=== PATIENT | male | born 1940 | race Caucasian/White ===

== ENCOUNTER 2022-10-12 12:18 | Inpatient (IN) | payer MEDICARE, OTHER ==
[2022-10-12] VITALS: BP 130/67
[~2022-10-12] VITALS: Ht 172.7 cm; Wt 78.0 kg
[~2022-10-12 12:18] MED LIST: ASPI-605 PO; ENAL10TA75 PO; LATA2.5D2 EACHEYE; LEVO100T PO; LISI10TA30 PO; OMEP20CA4 PO; PRAV20TA4 PO; SIMV20TA2 PO; SITA25TA; TIMO1DRO2 EACHEYE; [UNRECOGNIZED DRUG - REMARK]
--- NOTE | 2022-10-12 12:34 | NUR ---
DR. AMADO SPEAKING WITH DR. PECK.
[2022-10-12] MEDS ORDERED: FOLI0.4T6 PO (12:59)
[2022-10-12] MEDS ORDERED: CALC1TAB30 PO (12:59)
[2022-10-12] MEDS ORDERED: FAMO20TA8 PO (12:59)
[2022-10-12] MEDS ORDERED: HYDR-4303 PO (12:59)
[2022-10-12] MEDS ORDERED: CARV6.252 PO (12:59)
[2022-10-12] MEDS ORDERED: ALPR0.5T8 PO (12:59)
[2022-10-12] MEDS ORDERED: MULT-1201 PO (13:00)
--- NOTE | 2022-10-12 13:10 | NUR ---
linsey established. 20g R FA
[2022-10-12 13:39] LABS: BASOPHILS % (AUTO) 0.2 % (0.0-2.0); EOSINOPHILS % (AUTO) 0.1 % (0.0-6.0); HEMATOCRIT 34 % (39-51); HEMOGLOBIN 11.1 g/dL (13.5-17.5); LYMPHOCYTES # (AUTO) 0.3 K/uL (0.8-4.8); LYMPHOCYTES % (AUTO) 1.4 % (20.0-44.0); MEAN CORPUSCULAR HGB CONC 32 g/dl (31.0-36.0); MEAN CORPUSCULAR VOLUME 87 fL (80-96); MONOCYTES # (AUTO) 0.2 K/uL (0.1-1.30); MONOCYTES % (AUTO) 0.9 % (2.0-12.0); NEUTROPHILS # (AUTO) 21.3 K/uL (1.8-8.9); NEUTROPHILS % (AUTO) 97.4 % (43.0-81.0); PLATELET COUNT (AUTO) 187 K/uL (150-450); RED BLOOD CELL COUNT(AUTO) 3.94 MIL/uL (4.5-6.0); WHITE BLOOD COUNT (AUTO) 21.9 K/uL (4.3-11.0)
[2022-10-12 13:55] LABS: CALCIUM, SERUM 9.2 mg/dL (8.5-10.1); CARBON DIOXIDE 25 mmol/L (21-32); CHLORIDE 94 mmol/L (98-107); CREATININE 1.2 mg/dL (0.6-1.3); GLUCOSE 72 mg/dL (74-106); SODIUM SERUM 130 mmol/L (136-145); UREA NITROGEN, BLOOD 51 mg/dL (7-18)
[2022-10-12 14:00] LABS: ALANINE AMINOTRANSFERASE 15 U/L (12-78); ALKALINE PHOSPHATASE 134 U/L (46-116); ASPARTATE AMINOTRANSFERASE 40 U/L (15-37); BILIRUBIN,DIRECT 0.3 mg/dL (0.0-0.2); BILIRUBIN,TOTAL 0.6 mg/dL (0.2-1.0); TOTAL PROTEIN, SERUM 5.5 g/dL (6.4-8.2)
[2022-10-12 14:05] LABS: ALBUMIN 1.3 g/dL (3.4-5.0)
[2022-10-12] MEDS ORDERED: IV NS 0.9% 1,000 ML BAG IV ONE (14:30)
[2022-10-12] MEDS ORDERED: CEFEPIME 1 GM in IV D5W 50 ML IV ONE (14:30)
[2022-10-12] MEDS ORDERED: VANCOMYCIN 1 GM in IV D5W 250 ML IV ONE (14:30)
--- NOTE | 2022-10-12 14:54 | NUR ---
URINE COLLECTED VIA IN &OUT CATH, AND SENT TO LAB.
[2022-10-12] MEDS ORDERED: MAG HYDROX/AL HYDROX/SIMETH 30 ML UDC PO PRN (15:00)
[2022-10-12] MEDS ORDERED: MORPHINE SULFATE INJ 2 MG/ML DISP.SYRIN IV PRN (15:00)
[2022-10-12] MEDS ORDERED: ACETAMINOPHEN 325 MG TABLET PO PRN (15:00)
[2022-10-12] MEDS ORDERED: ONDANSETRON HCL/PF 4 MG/2 ML VIAL IVP PRN (15:00)
[2022-10-12] MEDS ORDERED: MAGNESIUM HYDROXIDE 30 ML UDC PO PRN (15:00)
[2022-10-12] MEDS ORDERED: ALPRAZOLAM 0.5 MG TABLET PO PRN (15:00)
[2022-10-12] MEDS ORDERED: Z GUARD REMEDY 4 OZ OINT TP PRN (15:00)
[2022-10-12] MEDS ORDERED: IOHEXOL-300 100 ML VIAL IV ONE (15:21)
[2022-10-12] MEDS ORDERED: IV NS 0.9% 250 ML IV ONE (15:21)
[2022-10-12 16:08] LABS: BILIRUBIN,URINE 1+ (NEGATIVE); COLOR,URINE YELLOW (YELLOW); LEUKOCYTE ESTERASE ,URINE 3+ (NEGATIVE); NITRITE, URINE NEGATIVE (NEGATIVE); PH,URINE 8.5 (5.0-8.0); PROTEIN,URINE 2+ mg/dl (NEGATIVE); UGLUCOSE NEGATIVE (NEGATIVE)
[2022-10-12 16:54] LABS: BACTERIA,URINE 3+ /HPF (None Seen); SQUAMOUS EPITHELIAL CELL,UR Few /HPF (None Seen); WBC,URINE TOO NUMEROUS TO COUN /HPF (0-3)
--- NOTE | 2022-10-12 17:53 | NUR ---
COVID SWAB COLLECTED AND SENT TO LAB
--- NOTE | 2022-10-12 20:20 | NUR ---
LIZET () [phone]. FOR UPDATES.
--- NOTE | 2022-10-12 21:09 | NUR ---
REPORT GIVEN TO KT AYALA.
--- NOTE | 2022-10-12 21:19 | NUR ---
TRANSFERRED TO 117-1 VIA ACLS PROTOCOL
--- NOTE | 2022-10-12 21:20 | NUR ---
SERVICE TECHNICIAN COPIER NOTES: REPORT RECEIVED FROM STEEL LAYER LAKEISHA. PT TRANSFERRED TO [facility] FROM ER VIA [facility]. PLACED IN ROOM 117 BED 1. PT AWAKE, ALERT/ORIENTED X 1 AND NON-VERBAL ON ROOM AIR AND PT TOLERATED WELL. O2 SAT 97%. IV ACCESS ON RFA#20G INTACT AND PATENT. NO S/S OF INFILTRATIONS. NO FACIAL GRIMACING NOTED. NO ACUTE DISTRESS. ASSESSED WHOLE BODY. NOTED MULTIPLE DTI WITH NECROTIC TISSUE ON LEFT HEEL, SACRUM AREA, RT ISCHIUM AREA AND UPPER BACK AREA. NOTED REDNESS ON LT LATERAL FOOT AND LEFT KNEE. SWELLING NOTED ON TESTICLE AREA AND LEFT ARM NOTED WITH NON-PITTING EDEMA+3. PROVIDED GOOD SKIN CARE. ALL SAFETY MEASURES IN PLACE. SIDE RAILS UP X3, BED IN LOWEST POSITION AND LOCKED. PLACE CALL LIGHT WITH IN REACH. WILL CONTINUE TO MONITOR
[2022-10-12] MEDS: IV NS 0.9% 1,000 ML IV SCH (22:04)
[2022-10-12] MEDS: FAMOTIDINE (20 MG) 20 MG TABLET PO SCH (22:24)
[2022-10-12] MEDS: CARVEDILOL 6.25 MG TABLET PO SCH (22:25)
[2022-10-12] MEDS: ENOXAPARIN SODIUM 40 MG/0.4 ML DISP.SYRIN SQ SCH (22:27)
[2022-10-12] MEDS ORDERED: LATANOPROST EYE DROP 0.005% 2.5 ML BOTTLE ONE (22:41)
[2022-10-12] MEDS: LATANOPROST EYE DROP 0.005% 2.5 ML BOTTLE EACHEYE SCH (22:48)
--- NOTE | 2022-10-12 23:00 | NUR ---
RN NOTES: ATTEMPTED TO CALL [facility] [phone]. BUT NO ANSWER. KEPT RINGING. WILL TRY AGAIN
[2022-10-13] VITALS: BP 102/72
[2022-10-13] MEDS: CEFEPIME 2 GM in IV D5W 100 ML IV SCH ×2 (01:58→13:25)
[2022-10-13 04:00] VITALS: BP 148/65
[2022-10-13] MEDS: IV NS 0.9% 1,000 ML IV SCH ×2 (04:35→20:25)
--- NOTE | 2022-10-13 05:58 | NUR ---
RN NOTES: PT'S CALLED THROUGH [employer] TRUCK DRIVER. UPDATES GIVEN. WILL VISIT PT IN THE MORNING AT 8 AM.
--- NOTE | 2022-10-13 06:40 | NUR ---
RN CLOSING NOTES: PT SLEEPING IN BED BUT EASILY AROUSABLE, AWAKE, ALERT/ORIENTED X 1 AND NON-VERBAL. ON ROOM AIR AND PT TOLERATED WELL. O2 SAT 96%. IV ACCESS ON RFA#20G INTACT AND PATENT. NO S/S OF INFILTRATIONS. RUNNING NS AT 75CC/HR. NO FACIAL GRIMACING NOTED. NO ACUTE DISTRESS. ALL DUE MEDS GIVEN ORDERED. PROVIDED GOOD SKIN CARE. ALL SAFETY MEASURES IN PLACE. SIDE RAILS UP X3, BED IN LOWEST POSITION AND LOCKED. PLACE CALL LIGHT WITH IN REACH. WILL ENDORSE TO MORNING SHIFT NURSE.
--- NOTE | 2022-10-13 07:40 | NUR ---
RN OPENING NOTES PT RECEIVED IN BED RESTING. ALERT/ORIENTED X 1 AND NON-VERBAL. ON ROOM AIR BREATHING EVEN AND UNLABORED WITH NO S/S OF SOB OR RESPIRATORY DISTRESS. IV ACCESS ON RFA#20G INTACT AND PATENT AND NO S/S OF INFILTRATIONS RUNNING NS AT 75CC/HR. ALL SAFETY MEASURES IN PLACE. SIDE RAILS UP X3, BED IN LOWEST POSITION AND LOCKED AND CALL LIGHT WITHIN REACH. WILL CONTINUE TO MONITOR.
[2022-10-13 07:44] LABS: BASOPHILS % (AUTO) 0.2 % (0.0-2.0); HEMATOCRIT 33 % (39-51); HEMOGLOBIN 10.6 g/dL (13.5-17.5); LYMPHOCYTES # (AUTO) 0.4 K/uL (0.8-4.8); LYMPHOCYTES % (AUTO) 1.9 % (20.0-44.0); MEAN CORPUSCULAR HGB CONC 32 g/dl (31.0-36.0); MEAN CORPUSCULAR VOLUME 88 fL (80-96); MONOCYTES # (AUTO) 0.3 K/uL (0.1-1.30); MONOCYTES % (AUTO) 1.7 % (2.0-12.0); NEUTROPHILS # (AUTO) 18.3 K/uL (1.8-8.9); NEUTROPHILS % (AUTO) 96.2 % (43.0-81.0); PLATELET COUNT (AUTO) 158 K/uL (150-450); RED BLOOD CELL COUNT(AUTO) 3.79 MIL/uL (4.5-6.0)
[2022-10-13 08:00] VITALS: BP 140/64
[2022-10-13] MEDS: PANTOPRAZOLE 40 MG/PACK PACK PO SCH (08:32)
[2022-10-13] MEDS: LISINOPRIL (20MG) 20 MG TABLET PO SCH (08:32)
[2022-10-13] MEDS: FAMOTIDINE (20 MG) 20 MG TABLET PO SCH ×2 (08:32→17:48)
[2022-10-13] MEDS: CARVEDILOL 6.25 MG TABLET PO SCH ×2 (08:33→17:48)
--- NOTE | 2022-10-13 08:46 | NUR ---
GOLF CLUB FACER NOTE PATIENT HAS DIFFICULT TO SWALLOW REGULAR DIET ,PER DR LOBO OK TO CHANGE TO PUREE DIET, WILL F\U
[2022-10-13] MEDS ORDERED: TIMOLOL -XE 0.5% 5 ML BOTTLE EACHEYE SCH (09:00)
[2022-10-13] MEDS: LATANOPROST EYE DROP 0.005% 2.5 ML BOTTLE EACHEYE SCH (09:12)
[2022-10-13 09:17] LABS: BILIRUBIN,TOTAL 0.5 mg/dL (0.2-1.0); CALCIUM, SERUM 8.5 mg/dL (8.5-10.1); CREATININE 1.2 mg/dL (0.6-1.3); MAGNESIUM 1.8 mg/dL (1.8-2.4); PHOSPHORUS 2.8 mg/dL (2.5-4.9); POTASSIUM 3.8 mmol/L (3.5-5.1); TOTAL PROTEIN, SERUM 4.7 g/dL (6.4-8.2)
[2022-10-13 09:21] LABS: ALBUMIN 0.9 g/dL (3.4-5.0)
--- NOTE | 2022-10-13 10:58 | NUR ---
EYE DROP TIMOLOL NOT ADMINISTERED. NOT IN [place]. PHARMACY CONTACTED. PATIENT'S WILL BRING MEDICATION IN HERSELF.
--- NOTE | 2022-10-13 11:15 | NUR ---
PHARM ORDERED TIMOLOL. PATIENT'S NOTIFIED. SHE WILL NOT BRING IT IN HERSELF.
--- NOTE | 2022-10-13 11:32 | NUR ---
CRITICAL LAB OF ALBUMIN 0.9. DR JEFFERS NOTIFIED.
--- NOTE | 2022-10-13 11:32 | NUR ---
PATIENT STOOL TAKEN TO TEST FOR C-DIFF.
[2022-10-13 12:00] VITALS: BP 106/52
--- NOTE | 2022-10-13 12:33 | NUR ---
WOUND CARE CONSULT: PT PRESENTS WITH MULTIPLE PRESSURE ULCERS INCLUDING LOWER EXTREMITIES, RT BUTTOCK, SACRUM AND BACK DEEP TISSUE INJURIES, PRESENT ON ADMISSION. DR LOWERY AND DR CHIU CALLED FOR SURGICAL AND DPM CONSULTS. DISCUSSED SKIN PROTECTION WITH NURSING STAFF. PT NOTED TO HAVE SMALL AMOUNT OF LOOSE STOOL. FIRST STEP LOW AIRLOSS MATTRESS IS ON ORDER. MD IN AGREEMENT WITH PLAN OF CARE. Addendum: 10/13/22 at 1234 by JOSE MARIA CONTRERAS WNDNU Amended: Links added.
[2022-10-13] MEDS ORDERED: LIDOCAINE 1% INJ 50 ML MDV IJ ONE (13:00)
--- NOTE | 2022-10-13 13:08 | NUR ---
SW Consult: SW requested consult for multiple pressure sores. Patient brought to the hospital due to failure to thrive and wound complications. Patient appeared to be alert and oriented to self only. Patient appeared to be non-verbal and was unable to answer any questions. Patient's Radha ([phone]) was at bedside and was assisting pt. Patient's nephew was at bedside. Family stated that pt lives at home located at [address] [place] [address]; ([phone]). stated that pt has a caregiver at home 7 days a week. Family expressed that he had back surgery 16 weeks ago and has been bedbound at home. SW offered resources and options such as SNF - family refused and stated that they have full support and would want pt back home when stable. SW will file for APS report due to neglect of care at home (wellness check at home). DC PLAN: Family would want pt to return back home located at [address] [place] [id number]; ([phone]).
--- NOTE | 2022-10-13 13:16 | NUR ---
APS: MONTSE filed for APS through [facility] [employer] #[id number] for wellness check at home.
[2022-10-13] MEDS: PROSOURCE / PROSTAT (PYXIS) 30 ML UDC GT SCH ×2 (13:27→18:05)
--- NOTE | 2022-10-13 13:29 | NUR ---
CONTACTED KITCHEN REGARDING GLUCERNA SHAKE PATIENT RECEIVED ENSURE BUT NOT GLUCERNA. KITCHEN SAID THEY DID NOT SEE ORDER FOR GLUCERNA EARLIER. WILL SEND UP LORELEI.
--- NOTE | 2022-10-13 13:45 | NUR ---
FOLLOWED UP WITH PHARMACY FOR LIDOCAINE. PATIENT EXPECTED TO HAVE WOUND DEBRIDEMENT SHORTLY.
[2022-10-13] MEDS: GLUCERNA SHAKE 237 ML CAN PO SCH ×2 (13:51→18:05)
[2022-10-13] MEDS: VANCOMYCIN 1.25 GM in IV D5W 250 ML IV SCH (15:23)
[2022-10-13 16:00] VITALS: BP 118/95
[2022-10-13] MEDS: ATORVASTATIN 10 MG TABLET PO SCH (17:47)
[2022-10-13] MEDS: TIMOLOL 0.5% SOLN OPHTH 5 ML BOTTLE EACHEYE SCH (18:05)
[2022-10-13 20:00] VITALS: BP 88/55
--- NOTE | 2022-10-13 20:03 | NUR ---
GRIT REMOVAL OPERATOR OPENING NOTES PT IN BED SLEEPING. PATIENT IS DEAF BUT ALERT. ON ROOM AIR BREATHING EVEN AND UNLABORED WITH NO S/S OF SOB OR RESPIRATORY DISTRESS. ON TELE MONITOR. IV ACCESS ON RFA#20G INTACT AND PATENT AND NO S/S OF INFILTRATIONS RUNNING NS AT 75CC/HR. ALL DUE MEDS GIVEN AND PATIENT KEPT CLEAN AND COMFORTABLE. ALL SAFETY MEASURES IN PLACE WITH SIDE RAILS UP X3, BED IN LOWEST POSITION AND LOCKED AND CALL LIGHT WITHIN REACH. WILL ENDORSE TO ONCOMING SHIFT FOR DINA. Addendum: 10/13/22 at 2008 by KENDALL MYERS RN CLOSING NOTES, NOT OPENING NOTES
[2022-10-13] MEDS: MEROPENEM 500 MG in IV NS 0.9% 50 ML IV SCH (20:56)
[2022-10-13] MEDS: ENOXAPARIN SODIUM 40 MG/0.4 ML DISP.SYRIN SQ SCH (21:00)
[2022-10-13] MEDS: DAKINS QUARTER STRENGTH (0.125%) 480 ML BOTTLE TOP SCH (23:00)
[2022-10-14] VITALS (22 sets, daily range): BP systolic 73–127; BP diastolic 40–75
[2022-10-14] MEDS: MEROPENEM 500 MG in IV NS 0.9% 50 ML IV SCH ×3 (05:12→21:07)
[2022-10-14] MEDS: IV NS 0.9% 1,000 ML IV SCH (06:33)
--- NOTE | 2022-10-14 06:39 | NUR ---
FIRE FIGHTING EQUIPMENT SPECIALIST CLOSING NOTES PT IN BED SLEEPING. PATIENT IS DEAF BUT ALERT. ON ROOM AIR BREATHING EVEN AND UNLABORED WITH NO S/S OF SOB OR RESPIRATORY DISTRESS. ON TELE MONITOR. IV ACCESS ON RFA#20G INTACT AND PATENT AND NO S/S OF INFILTRATIONS RUNNING NS AT 75CC/HR. PATIENT KEPT CLEAN AND COMFORTABLE. ALL SAFETY MEASURES IN PLACE WITH SIDE RAILS UP X3, BED IN LOWEST POSITION AND LOCKED AND CALL LIGHT WITHIN REACH.
[2022-10-14 06:46] LABS: CALCIUM, SERUM 8.6 mg/dL (8.5-10.1); CARBON DIOXIDE 21 mmol/L (21-32); CHLORIDE 100 mmol/L (98-107); CREATININE 1.3 mg/dL (0.6-1.3); GLUCOSE 186 mg/dL (74-106); POTASSIUM 3.7 mmol/L (3.5-5.1); SODIUM SERUM 130 mmol/L (136-145); UREA NITROGEN, BLOOD 53 mg/dL (7-18)
[2022-10-14] MEDS ORDERED: LIDOCAINE 1%-EPI 1:100,000 50 ML VIAL IJ ONE (07:00)
--- NOTE | 2022-10-14 07:10 | NUR ---
RN OPENING NOTE PT IN BED SLEEPING. PATIENT IS DEAF BUT ALERT. ON ROOM AIR BREATHING EVEN AND UNLABORED WITH NO S/S OF SOB OR RESPIRATORY DISTRESS. ON TELE MONITOR. IV ACCESS ON RFA#20G INTACT AND PATENT AND NO S/S OF INFILTRATIONS RUNNING NS AT 75CC/HR. ALL SAFETY MEASURES IN PLACE WITH SIDE RAILS UP X3, BED IN LOWEST POSITION AND LOCKED AND CALL LIGHT WITHIN REACH. WILL CONTINUE TO MONITOR.
[2022-10-14] MEDS: PANTOPRAZOLE 40 MG/PACK PACK PO SCH (07:46)
[2022-10-14] MEDS ORDERED: SILVER NITRATE APPLICATOR 1 EA BOX TP SCH (08:00)
[2022-10-14] MEDS: GLUCERNA SHAKE 237 ML CAN PO SCH ×2 (08:02→18:03)
[2022-10-14] MEDS: PROSOURCE / PROSTAT (PYXIS) 30 ML UDC GT SCH ×3 (08:46→17:00)
[2022-10-14] MEDS: LISINOPRIL (20MG) 20 MG TABLET PO SCH (09:00)
[2022-10-14] MEDS ORDERED: ENSURE ENLIVE 237 ML LIQUID (VANILLA) PO SCH (09:00)
[2022-10-14] MEDS: TIMOLOL 0.5% SOLN OPHTH 5 ML BOTTLE EACHEYE SCH ×2 (09:12→18:03)
[2022-10-14] MEDS: FAMOTIDINE (20 MG) 20 MG TABLET PO SCH ×2 (09:15→18:02)
[2022-10-14] MEDS: CARVEDILOL 6.25 MG TABLET PO SCH ×2 (09:15→17:00)
[2022-10-14] MEDS: DAKINS HALF STRENGTH (0.25%) 480 ML BOTTLE TOP SCH (09:15)
[2022-10-14] MEDS: DAKINS QUARTER STRENGTH (0.125%) 480 ML BOTTLE TOP SCH (09:15)
[2022-10-14] MEDS: MIDODRINE HCL (5MG) 5 MG TABLET PO SCH ×3 (11:17→18:02)
[2022-10-14 11:32] LABS: BILIRUBIN,DIRECT 0.2 mg/dL (0.0-0.2); BILIRUBIN,TOTAL 0.5 mg/dL (0.2-1.0); TOTAL PROTEIN, SERUM 4.6 g/dL (6.4-8.2)
[2022-10-14 12:12] LABS: BASOPHILS % (AUTO) 0.1 % (0.0-2.0); HEMATOCRIT 28 % (39-51); HEMOGLOBIN 9.1 g/dL (13.5-17.5); LYMPHOCYTES # (AUTO) 0.3 K/uL (0.8-4.8); LYMPHOCYTES % (AUTO) 1.4 % (20.0-44.0); MEAN CORPUSCULAR HGB CONC 32 g/dl (31.0-36.0); MEAN CORPUSCULAR VOLUME 86 fL (80-96); MONOCYTES # (AUTO) 0.4 K/uL (0.1-1.30); NEUTROPHILS # (AUTO) 17.9 K/uL (1.8-8.9); NEUTROPHILS % (AUTO) 96.5 % (43.0-81.0); PLATELET COUNT (AUTO) 155 K/uL (150-450); RED BLOOD CELL COUNT(AUTO) 3.28 MIL/uL (4.5-6.0); WHITE BLOOD COUNT (AUTO) 18.5 K/uL (4.3-11.0)
[2022-10-14] MEDS ORDERED: NOREPINEPHRINE 8 MG in IV NS 0.9% 242 ML IV PRN (13:00)
--- NOTE | 2022-10-14 13:20 | NUR ---
PT ARRIVED IN ICU VIA BED. PT LETHARGIC BUT AROUSES WITHOUT DIFFICULTY. PT ORIENTED TO SELF. BP IS LOW, BOLUS GIVEN IN [facility] PER REPORT. LEVOPHED WILL BE STARTED IF PT'S BLOOD PRESSURE STAYS BELOW A MAP OF 65 OR SYSTOLIC OF 90, WILL CONTINUE TO MONITOR. AT THIS TIME BP IS BORDERLINE. REQUESTED FOR MIDLINE FOR PATIENT SINCE PATIENT ONLY HAS 1 IV SITE. PT CHECKED ON HOURLY AND PRN BY NURSING STAFF.
[2022-10-14] MEDS: IV NS 0.9% 1,000 ML IV PRN (13:30)
--- NOTE | 2022-10-14 13:30 | NUR ---
PATIENT TRANSFERRED TO ICU, BEDSIDE REPORT GIVEN TO MARVA MERAZ IN ICU. ALL BELONGINGS AND MEDICATIONS SENT WITH PATIENT. FAMILY NOTIFIED ABOUT TRANSFER.
[2022-10-14] MEDS: VANCOMYCIN 1.25 GM in IV D5W 250 ML IV SCH (14:38)
[2022-10-14 14:46] LABS: D-DIMER 2.81 mg/L(FEU (0.17-0.50)
[2022-10-14] MEDS: ATORVASTATIN 10 MG TABLET PO SCH (18:02)
[2022-10-14] MEDS: ENOXAPARIN SODIUM 40 MG/0.4 ML DISP.SYRIN SQ SCH (21:07)
[2022-10-14] MEDS: LATANOPROST EYE DROP 0.005% 2.5 ML BOTTLE EACHEYE SCH (21:09)
--- NOTE | 2022-10-14 22:00 | NUR ---
ICU/RN: TASHA WATTERS ACNP AT BEDSIDE PLACE MIDLINE. RIGHT UPPER ARM MIDLINE PLACED. PT TOLERATED WELL.
[2022-10-15] VITALS (26 sets, daily range): BP systolic 87–137; BP diastolic 43–114
[2022-10-15 05:10] LABS: BASOPHILS % (AUTO) 0.1 % (0.0-2.0); EOSINOPHILS % (AUTO) 0.1 % (0.0-6.0); HEMATOCRIT 28 % (39-51); HEMOGLOBIN 9.2 g/dL (13.5-17.5); LYMPHOCYTES # (AUTO) 0.3 K/uL (0.8-4.8); LYMPHOCYTES % (AUTO) 1.7 % (20.0-44.0); MEAN CORPUSCULAR HGB CONC 33 g/dl (31.0-36.0); MEAN CORPUSCULAR VOLUME 85 fL (80-96); MONOCYTES # (AUTO) 0.4 K/uL (0.1-1.30); MONOCYTES % (AUTO) 1.8 % (2.0-12.0); NEUTROPHILS # (AUTO) 19.6 K/uL (1.8-8.9); NEUTROPHILS % (AUTO) 96.3 % (43.0-81.0); PLATELET COUNT (AUTO) 180 K/uL (150-450); RED BLOOD CELL COUNT(AUTO) 3.34 MIL/uL (4.5-6.0); WHITE BLOOD COUNT (AUTO) 20.4 K/uL (4.3-11.0)
[2022-10-15 05:15] LABS: ALANINE AMINOTRANSFERASE 20 U/L (12-78); ALKALINE PHOSPHATASE 95 U/L (46-116); ASPARTATE AMINOTRANSFERASE 37 U/L (15-37); BILIRUBIN,TOTAL 0.4 mg/dL (0.2-1.0); CALCIUM, SERUM 8.5 mg/dL (8.5-10.1); CARBON DIOXIDE 22 mmol/L (21-32); CHLORIDE 103 mmol/L (98-107); CREATININE 1.2 mg/dL (0.6-1.3); GLUCOSE 159 mg/dL (74-106); POTASSIUM 3.6 mmol/L (3.5-5.1); SODIUM SERUM 135 mmol/L (136-145); TOTAL PROTEIN, SERUM 4.3 g/dL (6.4-8.2); UREA NITROGEN, BLOOD 54 mg/dL (7-18)
[2022-10-15] MEDS: MEROPENEM 500 MG in IV NS 0.9% 50 ML IV SCH ×3 (05:15→20:30)
[2022-10-15] MEDS: PANTOPRAZOLE 40 MG/PACK PACK PO SCH (08:27)
[2022-10-15] MEDS: MIDODRINE HCL (5MG) 5 MG TABLET PO SCH ×3 (08:28→17:17)
[2022-10-15] MEDS: FAMOTIDINE (20 MG) 20 MG TABLET PO SCH ×2 (08:28→17:17)
[2022-10-15] MEDS: TIMOLOL 0.5% SOLN OPHTH 5 ML BOTTLE EACHEYE SCH ×2 (08:30→17:14)
[2022-10-15] MEDS: GLUCERNA SHAKE 237 ML CAN PO SCH ×2 (08:30→17:00)
[2022-10-15] MEDS: CARVEDILOL 6.25 MG TABLET PO SCH ×2 (08:30→17:00)
[2022-10-15] MEDS: LISINOPRIL (20MG) 20 MG TABLET PO SCH (08:31)
[2022-10-15] MEDS: PROSOURCE / PROSTAT (PYXIS) 30 ML UDC GT SCH ×3 (08:33→17:00)
[2022-10-15] MEDS: DAKINS HALF STRENGTH (0.25%) 480 ML BOTTLE TOP SCH (08:37)
[2022-10-15] MEDS: DAKINS QUARTER STRENGTH (0.125%) 480 ML BOTTLE TOP SCH (08:37)
[2022-10-15] MEDS: IV NS 0.9% 1,000 ML IV PRN (10:26)
[2022-10-15 13:17] LABS: BAND % (MANUAL) 6 % (0.0-5.0); BASOPHILS % (MANUAL) 0 % (0.0-2.0); EOSINOPHILS % (MANUAL) 0 % (0-4); LYMPHOCYTES % (MANUAL) 6 % (16-48); MONOCYTES % (MANUAL) 4 % (0-11.0); NEUTROPHILS % (MANUAL) 84 (42-76)
[2022-10-15] MEDS: VANCOMYCIN 1.25 GM in IV D5W 250 ML IV SCH (13:53)
[2022-10-15] MEDS: ATORVASTATIN 10 MG TABLET PO SCH (17:18)
--- NOTE | 2022-10-15 19:10 | NUR ---
RN CLOSING NOTE PT ASLEEP, O2 2L VIA NC, SAT 99%, IV ACCESS RIGHT UA, INTACT, PATENT. PT NPO EXCEPT MEDS UNTIL CT NECK. ENDORSE TO THE UPCOMING SHIFT NURSE FOR DINA.
[2022-10-15] MEDS: ENOXAPARIN SODIUM 40 MG/0.4 ML DISP.SYRIN SQ SCH (20:29)
[2022-10-15] MEDS: LATANOPROST EYE DROP 0.005% 2.5 ML BOTTLE EACHEYE SCH (22:17)
[2022-10-16] VITALS (18 sets, daily range): BP systolic 102–158; BP diastolic 52–112
[2022-10-16] MEDS: IV NS 0.9% 1,000 ML IV PRN ×2 (01:12→18:05)
[2022-10-16 04:33] LABS: BASOPHILS # (AUTO) 0.1 K/uL (0.0-0.2); BASOPHILS % (AUTO) 0.3 % (0.0-2.0); HEMATOCRIT 28 % (39-51); LYMPHOCYTES # (AUTO) 0.4 K/uL (0.8-4.8); LYMPHOCYTES % (AUTO) 1.7 % (20.0-44.0); MEAN CORPUSCULAR HGB CONC 33 g/dl (31.0-36.0); MEAN CORPUSCULAR VOLUME 85 fL (80-96); MONOCYTES # (AUTO) 0.4 K/uL (0.1-1.30); MONOCYTES % (AUTO) 1.9 % (2.0-12.0); NEUTROPHILS # (AUTO) 22.3 K/uL (1.8-8.9); NEUTROPHILS % (AUTO) 95.1 % (43.0-81.0); PLATELET COUNT (AUTO) 209 K/uL (150-450); RED BLOOD CELL COUNT(AUTO) 3.24 MIL/uL (4.5-6.0); WHITE BLOOD COUNT (AUTO) 23.4 K/uL (4.3-11.0)
[2022-10-16] MEDS: MEROPENEM 500 MG in IV NS 0.9% 50 ML IV SCH ×3 (05:01→22:06)
[2022-10-16 05:05] LABS: ALANINE AMINOTRANSFERASE 20 U/L (12-78); ALKALINE PHOSPHATASE 98 U/L (46-116); ASPARTATE AMINOTRANSFERASE 28 U/L (15-37); BILIRUBIN,TOTAL 0.4 mg/dL (0.2-1.0); CALCIUM, SERUM 8.4 mg/dL (8.5-10.1); CARBON DIOXIDE 22 mmol/L (21-32); CHLORIDE 106 mmol/L (98-107); CREATININE 1.3 mg/dL (0.6-1.3); GLUCOSE 157 mg/dL (74-106); POTASSIUM 3.7 mmol/L (3.5-5.1); SODIUM SERUM 136 mmol/L (136-145); TOTAL PROTEIN, SERUM 4.3 g/dL (6.4-8.2); UREA NITROGEN, BLOOD 59 mg/dL (7-18)
[2022-10-16 05:58] LABS: BAND % (MANUAL) 1 % (0.0-5.0); LYMPHOCYTES % (MANUAL) 4 % (16-48); MONOCYTES % (MANUAL) 2 % (0-11.0); NEUTROPHILS % (MANUAL) 93 (42-76)
--- NOTE | 2022-10-16 07:14 | NUR ---
RN OPENING NOTE PT IN BED AWAKE. PATIENT IS DEAF ON ROOM AIR BREATHING EVEN AND UNLABORED WITH NO S/S OF SOB OR RESPIRATORY DISTRESS.. IV ACCESS ON LILO MIDLINE . INTACT AND PATENT AND NO S/S OF INFILTRATIONS RUNNING NS AT 75CC/HR. ALL SAFETY MEASURES IN PLACE WITH SIDE RAILS UP X3, BED IN LOWEST POSITION AND LOCKED AND CALL LIGHT WITHIN REACH. WILL CONTINUE TO MONITOR.
[2022-10-16] MEDS: GLUCERNA SHAKE 237 ML CAN PO SCH ×2 (08:00→17:00)
[2022-10-16] MEDS: PANTOPRAZOLE 40 MG/PACK PACK PO SCH (08:06)
[2022-10-16] MEDS: LISINOPRIL (20MG) 20 MG TABLET PO SCH (08:06)
[2022-10-16] MEDS: PROSOURCE / PROSTAT (PYXIS) 30 ML UDC GT SCH ×3 (08:06→17:54)
[2022-10-16] MEDS: CARVEDILOL 6.25 MG TABLET PO SCH ×2 (08:07→17:54)
[2022-10-16] MEDS: FAMOTIDINE (20 MG) 20 MG TABLET PO SCH ×2 (08:07→17:54)
[2022-10-16] MEDS: MIDODRINE HCL (5MG) 5 MG TABLET PO SCH ×3 (08:18→17:56)
[2022-10-16] MEDS: DAKINS QUARTER STRENGTH (0.125%) 480 ML BOTTLE TOP SCH (09:25)
[2022-10-16] MEDS: DAKINS HALF STRENGTH (0.25%) 480 ML BOTTLE TOP SCH (09:25)
[2022-10-16] MEDS: TIMOLOL 0.5% SOLN OPHTH 5 ML BOTTLE EACHEYE SCH ×2 (09:26→17:54)
[2022-10-16] MEDS: ATORVASTATIN 10 MG TABLET PO SCH (17:54)
--- NOTE | 2022-10-16 19:20 | NUR ---
ELEMENTARY SCIENCE TEACHER OPENING NOTE PT IS LYING IN BED WATCHING TV. ACCORDING TO CHANGE SHIFT REPORT, PT IS DEAF. HE IS ON 2 LPM OF OXYGEN VIA NC, TOLERATED WELL. NO S/S OF DISTRESS. PT HAS IV ACCESS AT HIS R UA, ML, #18G, INFUSING NS @75ML / HR. IV SITE IS PATENT AND INTACT. PT IS ON EXTERNAL MONEY MANAGER, ON THE MONITOR, HIS HEART RHYTHM IS V-PACING. PT IS ON NPO EXCEPT FOR MEDICATIONS. PT HAS JUAREZ CATHETER, DRAINING SLIGHTLY CLOUDY LIGHT YELLOW COLOR URINE FREELY. SAFETY MEASURES ARE IN PLACED: BED IN LOWEST AND LOCKED POSITION; SIDE RAILS UP X 2; CALL LIGHT AND TABLE ARE WITHIN REACH. WILL CONTINUE MONITORING THE PT AND PROVIDE THE CARE PT NEEDS.
[2022-10-16] MEDS: ENOXAPARIN SODIUM 40 MG/0.4 ML DISP.SYRIN SQ SCH (22:07)
[2022-10-16] MEDS: LATANOPROST EYE DROP 0.005% 2.5 ML BOTTLE EACHEYE SCH (22:21)
[2022-10-17] VITALS: BP 114/54
[2022-10-17 04:00] VITALS: BP 144/69
[2022-10-17] MEDS: MEROPENEM 500 MG in IV NS 0.9% 50 ML IV SCH ×3 (04:05→20:18)
--- NOTE | 2022-10-17 06:43 | NUR ---
FORGE HAND CLOSING NOTE PT IS SLEEPING IN BED, EASILY BEING AROUSED BY TOUCHING HIS SHOULDER. HE IS ON 2 LPM OF OXYGEN VIA NC, TOLERATED WELL. NO S/S OF DISTRESS. PT HAS IV ACCESS AT HIS R UA, ML, #18G, INFUSING NS @75ML / HR. IV SITE IS PATENT AND INTACT. PT IS ON EXTERNAL EXPANDED DUTY DENTAL ASSISTANT, ON THE MONITOR, HIS HEART RHYTHM IS V-PACING. PT HAS BEEN ON NPO EXCEPT FOR MEDICATIONS DURING THE SHIFT. HE HAS JUAREZ CATHETER, DRAINING SLIGHTLY CLOUDY LIGHT YELLOW COLOR URINE FREELY. URINE OUTPUT DURING THE SHIFT IS 400 ML. BOWEL MOVEMENT X 1: LOOSE STOLLS, LARGE AMOUNT. SAFETY MEASURES ARE IN PLACED: BED IN LOWEST AND LOCKED POSITION; SIDE RAILS UP X 2; CALL LIGHT AND TABLE ARE WITHIN REACH. WILL ENDORSE NEXT SHIFT NURSE FOR CONTINUING PT CARE.
[2022-10-17] MEDS: IV NS 0.9% 1,000 ML IV PRN (06:54)
[2022-10-17 07:22] LABS: BASOPHILS % (AUTO) 0.1 % (0.0-2.0); EOSINOPHILS % (AUTO) 0.1 % (0.0-6.0); HEMATOCRIT 31 % (39-51); HEMOGLOBIN 9.6 g/dL (13.5-17.5); LYMPHOCYTES # (AUTO) 0.3 K/uL (0.8-4.8); LYMPHOCYTES % (AUTO) 1.8 % (20.0-44.0); MEAN CORPUSCULAR HGB CONC 31 g/dl (31.0-36.0); MEAN CORPUSCULAR VOLUME 91 fL (80-96); MONOCYTES # (AUTO) 0.5 K/uL (0.1-1.30); MONOCYTES % (AUTO) 2.9 % (2.0-12.0); NEUTROPHILS # (AUTO) 17.4 K/uL (1.8-8.9); NEUTROPHILS % (AUTO) 95.1 % (43.0-81.0); PLATELET COUNT (AUTO) 154 K/uL (150-450); WHITE BLOOD COUNT (AUTO) 18.3 K/uL (4.3-11.0)
[2022-10-17 07:24] LABS: CALCIUM, SERUM 8.8 mg/dL (8.5-10.1); CARBON DIOXIDE 19 mmol/L (21-32); CHLORIDE 110 mmol/L (98-107); CREATININE 1.2 mg/dL (0.6-1.3); GLUCOSE 134 mg/dL (74-106); POTASSIUM 3.6 mmol/L (3.5-5.1); SODIUM SERUM 139 mmol/L (136-145); UREA NITROGEN, BLOOD 66 mg/dL (7-18)
--- NOTE | 2022-10-17 07:25 | NUR ---
CONTROL AND RECOVERY COMBAT RESCUE OPENING NOTE PT RECEIVED IN BED ASLEEP. ON 2 LPM OF OXYGEN VIA NC, BREATHING EVEN AND UNLABORED, WITH NO S/S OF SOB OR RESPIRATORY DISTRESS. IV ACCESS AT LILO ML, #18G, PATENT AND INTACT, INFUSING NS @75ML / HR. RFA IV 20G SL PRESENT. PT NPO EXCEPT FOR MEDICATIONS. JUAREZ CATHETER PRESENT AND DRAINING SLIGHTLY CLOUDY LIGHT YELLOW COLOR URINE. SAFETY MEASURES IN PLACE WITH BED IN LOWEST AND LOCKED POSITION, SIDE RAILS UP X 2, AND CALL LIGHT AND TABLE WITHIN REACH. WILL CONTINUE TO MONITOR.
[2022-10-17 07:30] LABS: ALANINE AMINOTRANSFERASE 21 U/L (12-78); ALKALINE PHOSPHATASE 107 U/L (46-116); ASPARTATE AMINOTRANSFERASE 35 U/L (15-37); BILIRUBIN,TOTAL 0.6 mg/dL (0.2-1.0); TOTAL PROTEIN, SERUM 4.8 g/dL (6.4-8.2)
[2022-10-17 07:32] LABS: ALBUMIN 1.1 g/dL (3.4-5.0)
[2022-10-17 07:35] LABS: IRON, SERUM 34 ug/dl (50-175); TOTAL IRON BINDING CAPACITY 80 ug/dl (250-450)
[2022-10-17 08:00] VITALS: BP 106/48
[2022-10-17] MEDS: GLUCERNA SHAKE 237 ML CAN PO SCH ×2 (08:00→16:21)
[2022-10-17] MEDS: PANTOPRAZOLE 40 MG/PACK PACK PO SCH (08:26)
[2022-10-17] MEDS: CARVEDILOL 6.25 MG TABLET PO SCH ×2 (08:29→17:00)
[2022-10-17] MEDS: FAMOTIDINE (20 MG) 20 MG TABLET PO SCH ×2 (08:29→16:22)
[2022-10-17] MEDS: MIDODRINE HCL (5MG) 5 MG TABLET PO SCH (08:29)
[2022-10-17] MEDS: DAKINS QUARTER STRENGTH (0.125%) 480 ML BOTTLE TOP SCH (09:00)
[2022-10-17] MEDS: DAKINS HALF STRENGTH (0.25%) 480 ML BOTTLE TOP SCH (09:00)
[2022-10-17] MEDS ORDERED: MIDODRINE HCL (5MG) 5 MG TABLET PO PRN (09:00)
[2022-10-17] MEDS: LISINOPRIL (20MG) 20 MG TABLET PO SCH (09:45)
[2022-10-17 09:50] LABS: BAND % (MANUAL) 4 % (0.0-5.0); LYMPHOCYTES % (MANUAL) 4 % (16-48); METAMYELOCYTES % 1 % (0-0); MONOCYTES % (MANUAL) 2 % (0-11.0); MYELOCYTES % 1 % (0-0); NEUTROPHILS % (MANUAL) 88 (42-76)
[2022-10-17] MEDS: PROSOURCE / PROSTAT (PYXIS) 30 ML UDC GT SCH ×3 (09:58→16:21)
[2022-10-17] MEDS: LATANOPROST EYE DROP 0.005% 2.5 ML BOTTLE EACHEYE SCH (09:59)
[2022-10-17] MEDS: TIMOLOL 0.5% SOLN OPHTH 5 ML BOTTLE EACHEYE SCH ×2 (10:00→18:02)
[2022-10-17 12:00] VITALS: BP 123/56
[2022-10-17] MEDS ORDERED: VANCOMYCIN 0.75 GM in IV D5W 250 ML IV SCH (14:00)
--- NOTE | 2022-10-17 14:33 | NUR ---
PATIENT REASSESSED FOR SWALLOW EVAL. PATIENT ON STRICT NPO STATUS PER SPEECH THERAPY. Addendum: 10/17/22 at 1434 by KENDALL MYERS RN DR JIMY JEFFERS NOTIFIED.
[2022-10-17 16:00] VITALS: BP 121/51
[2022-10-17] MEDS: ATORVASTATIN 10 MG TABLET PO SCH (18:00)
--- NOTE | 2022-10-17 18:51 | NUR ---
PROCESS SUPERVISOR CLOSING NOTE PT IN BED WATCHING TV. ALERT AND ORIENTED X1 HARD OF HEARING. ON 2 LPM OF OXYGEN VIA NC, BREATHING EVEN AND UNLABORED, WITH NO S/S OF SOB OR RESPIRATORY DISTRESS. ON TELE MONITOR READING V-PACING 75. IV ACCESS AT LILO ML, #18G, PATENT AND INTACT, INFUSING NS @75 ML/HR. PT MOVED TO STRICT NPO STATUS. JUAREZ CATHETER PRESENT DRAINING MINIMAL LIGHT YELLOW COLORED URINE. WOUND CARE PROVIDED AND PATIENT KEPT CLEAN AND COMFORTABLE. SAFETY MEASURES IN PLACE WITH BED IN LOWEST AND LOCKED POSITION, SIDE RAILS UP X 2, AND CALL LIGHT AND TABLE WITHIN REACH. WILL ENDORSE TO ONCOMING SHIFT FOR DINA.
--- NOTE | 2022-10-17 19:00 | NUR ---
RN OPENING NOTE RECEIVED PT AWAKE IN BED. PT IS A/O X 1. PT IS IN 2L O2 INHAL;ATION VIA [employer] CANNULA, TOLERATING WELL, BREATHING EVEN AND UNLABORED @ THIS TIME. PT IV PRESENT @ RIGHT UPPER ARM MIDLINE RUNNING NS @ 75MLS/HR, PATENT,M INTACT AND FLUSHES WELL W/ NO S & SX OF INFILTRATION @ SITE NOTED. PT CARDIA MONITOR IS IN PLACE WITH CURRENT READING OF V-PACING, HR 75BPM. PT JUAREZ CATHETER IS IN PLACE DRAINING YELLOW COLORED URINE. SAFETY MEASURES IS IN PLACE. BED IN LOWEST AND LOCKED POSITION. SIDERAILS UP X 4. BEDSIDE TABLE AND CALL LIGHT IS WITHIN REACH. BED ALARM IS ON. WILL CONTINUE TO MOINTOR PT ACCORDINGLY.
[2022-10-17 20:00] VITALS: BP 102/60
[2022-10-17] MEDS: ENOXAPARIN SODIUM 40 MG/0.4 ML DISP.SYRIN SQ SCH ×2 (20:19→21:00)
--- NOTE | 2022-10-17 21:34 | NUR ---
PT IS POSSIBLE PEG PLACEMENT. INFORMED TASHA WATTERS RN EXAMINER. RN EXAMINER ORDERED TO HOLD MEDICATION. LOVENOX HELD PER RN EXAMINER'S ORDER. CHARGE NURSE IS MADE AWARE. WILL CONTINUE TO MONITOR.
[2022-10-18] VITALS (7 sets, daily range): BP systolic 106–164; BP diastolic 58–91
[2022-10-18] MEDS: MEROPENEM 500 MG in IV NS 0.9% 50 ML IV SCH ×3 (04:33→20:31)
[2022-10-18] MEDS: IV NS 0.9% 1,000 ML IV PRN (04:37)
[2022-10-18 06:23] LABS: BASOPHILS # (AUTO) 0.1 K/uL (0.0-0.2); BASOPHILS % (AUTO) 0.7 % (0.0-2.0); EOSINOPHILS % (AUTO) 0.2 % (0.0-6.0); HEMATOCRIT 29 % (39-51); HEMOGLOBIN 9.4 g/dL (13.5-17.5); LYMPHOCYTES # (AUTO) 0.4 K/uL (0.8-4.8); LYMPHOCYTES % (AUTO) 2.7 % (20.0-44.0); MEAN CORPUSCULAR HGB CONC 32 g/dl (31.0-36.0); MEAN CORPUSCULAR VOLUME 87 fL (80-96); MONOCYTES # (AUTO) 0.5 K/uL (0.1-1.30); MONOCYTES % (AUTO) 3.3 % (2.0-12.0); NEUTROPHILS % (AUTO) 93.1 % (43.0-81.0); PLATELET COUNT (AUTO) 142 K/uL (150-450); RED BLOOD CELL COUNT(AUTO) 3.37 MIL/uL (4.5-6.0); WHITE BLOOD COUNT (AUTO) 15.1 K/uL (4.3-11.0)
[2022-10-18 06:37] LABS: CALCIUM, SERUM 9.1 mg/dL (8.5-10.1); CARBON DIOXIDE 19 mmol/L (21-32); CHLORIDE 112 mmol/L (98-107); CREATININE 1.1 mg/dL (0.6-1.3); GLUCOSE 126 mg/dL (74-106); POTASSIUM 3.6 mmol/L (3.5-5.1); SODIUM SERUM 140 mmol/L (136-145); UREA NITROGEN, BLOOD 64 mg/dL (7-18)
[2022-10-18 06:41] LABS: ALANINE AMINOTRANSFERASE 20 U/L (12-78); ALKALINE PHOSPHATASE 101 U/L (46-116); ASPARTATE AMINOTRANSFERASE 36 U/L (15-37); BILIRUBIN,TOTAL 0.7 mg/dL (0.2-1.0); TOTAL PROTEIN, SERUM 4.7 g/dL (6.4-8.2)
[2022-10-18 06:54] LABS: ALBUMIN 1.1 g/dL (3.4-5.0)
--- NOTE | 2022-10-18 07:17 | NUR ---
RN CLOSING NOTE RECEIVED PT AWAKE IN BED. PT IS A/O X 1. PT IS IN 2L O2 INHALATION VIA [employer] CANNULA, TOLERATING WELL, BREATHING EVEN AND UNLABORED @ THIS TIME. PT IV PRESENT @ RIGHT UPPER ARM MIDLINE IS OCCLUDED. MIDLINE INSERTION ORDERED. PT JUAREZ CATHETER IS IN PLACE DRAINING YELLOW COLORED URINE. PT DIAPER CHANGED X 1. ADMINISTERED MEDICATION ACCORDINGLY PER MD'S ORDER. SAFETY MEASURES IS IN PLACE. BED IN LOWEST AND LOCKED POSITION. SIDERAILS UP X 4. BEDSIDE TABLE AND CALL LIGHT IS WITHIN REACH. BED ALARM IS ON. ENDORSE PT TO THE NEXT SHIFT FOR DINA.
--- NOTE | 2022-10-18 07:40 | NUR ---
JAVA CORE DEVELOPER OPENING NOTE RECEIVED PT AWAKE IN BED. PA/O X 2 . ON 2L O2 INHALATION VIA NC , TOLERATING WELL, NO SOB OR DISTRESS NOTED , NO C/O OF PAIN AND DISCOMFORT , IV ACCESS ON LILO MIDLINE OCCLUDED PER CREAM TESTER RN . PT ON MANUFACTURING DESIGN ENGINEER IS IN PLACE WITH CURRENT READING OF V-PACING, HR 60 BPM. PT JUAREZ CATHETER IS IN PLACE DRAINING YELLOW COLORED URINE. SAFETY MEASURES IS IN PLACE. BED IN LOWEST AND LOCKED POSITION. SIDERAILS UP X 4. BEDSIDE TABLE AND CALL LIGHT IS WITHIN REACH. BED ALARM IS ON. WILL CONTINUE TO MOINTOR PT ACCORDINGLY.
[2022-10-18] MEDS: GLUCERNA SHAKE 237 ML CAN PO SCH ×3 (08:00→16:44)
[2022-10-18] MEDS: PANTOPRAZOLE 40 MG/PACK PACK PO SCH (08:06)
[2022-10-18] MEDS: FAMOTIDINE (20 MG) 20 MG TABLET PO SCH ×3 (08:20→16:44)
[2022-10-18] MEDS: CARVEDILOL 6.25 MG TABLET PO SCH ×3 (08:21→16:44)
[2022-10-18] MEDS: PROSOURCE / PROSTAT (PYXIS) 30 ML UDC GT SCH ×4 (08:21→16:44)
[2022-10-18] MEDS: LISINOPRIL (20MG) 20 MG TABLET PO SCH ×2 (08:21→08:32)
[2022-10-18] MEDS ORDERED: LIDOCAINE 1% INJ 50 ML MDV IJ STA (10:22)
[2022-10-18] MEDS ORDERED: SILVER NITRATE APPLICATOR 1 EA BOX TP STA (10:22)
[2022-10-18] MEDS: TIMOLOL 0.5% SOLN OPHTH 5 ML BOTTLE EACHEYE SCH ×2 (10:22→17:40)
[2022-10-18] MEDS: DAKINS HALF STRENGTH (0.25%) 480 ML BOTTLE TOP SCH (10:23)
[2022-10-18] MEDS: DAKINS QUARTER STRENGTH (0.125%) 480 ML BOTTLE TOP SCH (10:23)
[2022-10-18 13:58] LABS: BAND % (MANUAL) 1 % (0.0-5.0); LYMPHOCYTES % (MANUAL) 3 % (16-48); METAMYELOCYTES % 2 % (0-0); MONOCYTES % (MANUAL) 5 % (0-11.0); NEUTROPHILS % (MANUAL) 89 (42-76)
[2022-10-18] MEDS ORDERED: VANCOMYCIN 1 GM in IV D5W 250 ML IV SCH (14:00)
--- NOTE | 2022-10-18 15:43 | NUR ---
RN NOTES PATIENT [facility] CALLED AND SAID THAT THEY DONT AGREE WITH ANY TUBE FEEDING AND THEY WANT TO BRING THE PATIENT HOME AND BE ADMITTED UNDER HOSPICE CARE AND PLANNING OT D/C ON MONDAY PER [facility] AND JUSTEN SOLIS - SISTER IN LAW . MADE AWARE
[2022-10-18] MEDS: ATORVASTATIN 10 MG TABLET PO SCH (17:31)
--- NOTE | 2022-10-18 18:56 | NUR ---
LABOR RELATIONS CONSULTANT OPENING NOTE RECEIVED PT AWAKE IN BED. PA/O X 1 . ON 2L O2 INHALATION VIA NC , TOLERATING WELL, NO SOB OR DISTRESS NOTED , NO C/O OF PAIN AND DISCOMFORT , IV ACCESS ON LILO MIDLINE OCCLUDED PER SUPERVISOR OF WAY RN . PT ON LATHE TURNER IS IN PLACE WITH CURRENT READING OF V-PACING, HR 60 BPM. PT JUAREZ CATHETER IS IN PLACE DRAINING YELLOW COLORED URINE. NPO MAINTAINED , SEEN BT ST AND STILL DIDNT PASS THE SWALLOW EVAL , SAFETY MEASURES IS IN PLACE. BED IN LOWEST AND LOCKED POSITION. SIDERAILS UP X 4. BEDSIDE TABLE AND CALL LIGHT IS WITHIN REACH. BED ALARM IS ON. ENDORSED TO NEXT SHIFT
--- NOTE | 2022-10-18 19:30 | NUR ---
POOL FINISHER NOTES RECEIVED ON HIGH FOWLERS POSITION,A/O X1,OHKAY OWINGEH ON BOTH EARS,APHASIC,,DEAF.NPO STATUS,FAILED SWALLOW EVAL.BOTH UPPER EXTREMITIES EDEMATOUS.JUAREZ CATH IN PLACE DRAIN YELLOWISH OUTPUT.SACRAL WOUNDMLEFT HEEL AND BACK WITH DRESSING INTACT AND DRY..IVFR NS AT 75ML/HR RATE IN PROGRESS ON LILO MIDLINE VIA IV PUMP,SITE PATENT.WILL CONTINUE TO MONITOR STATUS,CALL LIGHT IN REACH,NEEDS ANTICIPATED.
[2022-10-18] MEDS: ENOXAPARIN SODIUM 40 MG/0.4 ML DISP.SYRIN SQ SCH (20:34)
[2022-10-18] MEDS: LATANOPROST EYE DROP 0.005% 2.5 ML BOTTLE EACHEYE SCH (22:17)
[2022-10-19] VITALS: BP 126/63
[2022-10-19] MEDS: IV NS 0.9% 1,000 ML IV PRN ×2 (00:55→16:54)
[2022-10-19 04:00] VITALS: BP 136/86
[2022-10-19] MEDS: MEROPENEM 500 MG in IV NS 0.9% 50 ML IV SCH ×3 (04:24→21:35)
--- NOTE | 2022-10-19 06:46 | NUR ---
SOLID WASTE FACILITY OPERATOR NOTES ON BED A/O X1,MORNING CARE RENDERED,BOTH ARM STILL WEEPING,PLAN DISCHARGE TO HOME PER FAMILY AND PLACE ON HOSPICE CARE.IN NO ACUTE DISTRESS.
[2022-10-19] MEDS: PANTOPRAZOLE 40 MG/PACK PACK PO SCH (07:30)
--- NOTE | 2022-10-19 07:30 | NUR ---
ANIMAL TECH OPENING NOTE RECEIVED PT ASLEEP. ON 2L O2 VIA NC BREATHING EVEN AND UNLABORED WITH NO S/S OF SOB OR RESPIRATORY DISTRESS NOTED. IV ACCESS ON LILO MIDLINE PATENT AND INTACT RUNNING NS @ 75 ML/HR. JUAREZ CATHETER IN PLACE DRAINING YELLOW COLORED URINE. SAFETY MEASURES IS IN PLACE WITH BED IN LOWEST AND LOCKED POSITION, SIDERAILS UP X 4, BEDSIDE TABLE AND CALL LIGHT WITHIN REACH, AND BED ALARM IS ON. WILL CONTINUE TO MONITOR.
[2022-10-19 07:33] LABS: BASOPHILS % (AUTO) 0.2 % (0.0-2.0); EOSINOPHILS % (AUTO) 0.9 % (0.0-6.0); HEMATOCRIT 32 % (39-51); HEMOGLOBIN 9.6 g/dL (13.5-17.5); LYMPHOCYTES # (AUTO) 0.6 K/uL (0.8-4.8); LYMPHOCYTES % (AUTO) 4.7 % (20.0-44.0); MEAN CORPUSCULAR HGB CONC 30 g/dl (31.0-36.0); MEAN CORPUSCULAR VOLUME 92 fL (80-96); MONOCYTES # (AUTO) 0.4 K/uL (0.1-1.30); MONOCYTES % (AUTO) 3.2 % (2.0-12.0); NEUTROPHILS # (AUTO) 12.1 K/uL (1.8-8.9); PLATELET COUNT (AUTO) 143 K/uL (150-450); RED BLOOD CELL COUNT(AUTO) 3.46 MIL/uL (4.5-6.0); WHITE BLOOD COUNT (AUTO) 13.3 K/uL (4.3-11.0)
[2022-10-19 07:50] LABS: CALCIUM, SERUM 8.9 mg/dL (8.5-10.1); CARBON DIOXIDE 15 mmol/L (21-32); CHLORIDE 114 mmol/L (98-107); GLUCOSE 110 mg/dL (74-106); POTASSIUM 3.5 mmol/L (3.5-5.1); SODIUM SERUM 139 mmol/L (136-145); UREA NITROGEN, BLOOD 59 mg/dL (7-18)
[2022-10-19 07:57] LABS: ALANINE AMINOTRANSFERASE 20 U/L (12-78); ALKALINE PHOSPHATASE 98 U/L (46-116); ASPARTATE AMINOTRANSFERASE 35 U/L (15-37); BILIRUBIN,TOTAL 0.7 mg/dL (0.2-1.0); TOTAL PROTEIN, SERUM 4.8 g/dL (6.4-8.2)
[2022-10-19 08:00] VITALS: BP 138/84
[2022-10-19] MEDS: GLUCERNA SHAKE 237 ML CAN PO SCH ×2 (08:00→17:00)
[2022-10-19 08:11] LABS: ALBUMIN < 3.4 g/dL (3.4-5.0)
[2022-10-19] MEDS: PROSOURCE / PROSTAT (PYXIS) 30 ML UDC GT SCH ×3 (08:34→17:00)
[2022-10-19] MEDS: CARVEDILOL 6.25 MG TABLET PO SCH ×2 (08:34→17:00)
[2022-10-19] MEDS: LISINOPRIL (20MG) 20 MG TABLET PO SCH (08:35)
[2022-10-19] MEDS: FAMOTIDINE (20 MG) 20 MG TABLET PO SCH ×2 (08:35→17:00)
[2022-10-19] MEDS: TIMOLOL 0.5% SOLN OPHTH 5 ML BOTTLE EACHEYE SCH ×2 (09:10→17:59)
[2022-10-19] MEDS: DAKINS QUARTER STRENGTH (0.125%) 480 ML BOTTLE TOP SCH (09:10)
[2022-10-19] MEDS: DAKINS HALF STRENGTH (0.25%) 480 ML BOTTLE TOP SCH (09:10)
[2022-10-19 16:00] VITALS: BP 143/74
[2022-10-19] MEDS: ATORVASTATIN 10 MG TABLET PO SCH (17:11)
--- NOTE | 2022-10-19 19:00 | NUR ---
MS RN CLOSING NOTE PATIENT IN BED RESTING. ALERT AND ORIENTED X1, HARD OF HEARING. ON 2L O2 VIA NC BREATHING EVEN AND UNLABORED WITH NO S/S OF SOB OR RESPIRATORY DISTRESS NOTED. IV ACCESS ON LILO MIDLINE PATENT AND INTACT RUNNING NS @ 75 ML/HR. JUAREZ CATHETER IN PLACE DRAINING MINIMAL YELLOW COLORED URINE. ALL DUE MEDS GIVEN AND PATIENT KEPT CLEAN AND COMFORTABLE. SAFETY MEASURES IS IN PLACE WITH BED IN LOWEST AND LOCKED POSITION, SIDERAILS UP X 4, BEDSIDE TABLE AND CALL LIGHT WITHIN REACH, AND BED ALARM IS ON. WILL ENDORSE TO ONCOMING SHIFT FOR DINA..
--- NOTE | 2022-10-19 19:30 | NUR ---
MS RN OPENING NOTES: RECEIVED PATIENT SLEEP IN BED AROUSABLE TO TACTILE STIMULI, BED IN LOW POSITION CALL LIGHTS WITHIN REACH, NO COMPLAIN OF PAIN AND DISCOMFORT AT THIS TIME, ON O2 INHALATION AT 2LPM SATURATING WELL, PATIENT IS A/O X1 HARD OF HEARING, IV LINE AT LILO ML WITH ONGOING 0.9NSS@75ML/HR INFUSING WELL, PATIENT IS NPO, ON JUAREZ CATHETER-500CC URIEN OUTPUT, PATIENT KEPT CLEAN AND DRY ALL NEEDS MET WILL CONTINUE TO MONITOR.
[2022-10-19 20:00] VITALS: BP 143/68
[2022-10-19] MEDS: LATANOPROST EYE DROP 0.005% 2.5 ML BOTTLE EACHEYE SCH (21:35)
[2022-10-19] MEDS: ENOXAPARIN SODIUM 40 MG/0.4 ML DISP.SYRIN SQ SCH (21:37)
[2022-10-19 22:08] LABS: BAND % (MANUAL) 2 % (0.0-5.0); LYMPHOCYTES % (MANUAL) 8 % (16-48); MONOCYTES % (MANUAL) 2 % (0-11.0); NEUTROPHILS % (MANUAL) 88 (42-76)
[2022-10-20] VITALS: BP 143/68
[2022-10-20] MEDS: MEROPENEM 500 MG in IV NS 0.9% 50 ML IV SCH (04:55)
--- NOTE | 2022-10-20 06:17 | NUR ---
MS RN CLOSING NOTES:. PATIENT SLEEP IN BED COMFORTABLY, AROUSABLE TO TACTILE STIMULI, BED IN LOW POSITION CALL LIGHTS WITHIN REACH, NO COMPLAIN OF PAIN AND DISCOMFORT AT THIS TIME, NO FACIAL GRIMACING WAS OBSERVE, PATIENT ON JUAREZ CATHETER- 700CC URINE OUTPUT, IV LINE AT LILO ML WITH ONGOING 0.9NSS@75ML/HR INFUSING WELL, SACRAL WOUND CLEANSE AND REPLACE DRESSING, PATIENT KEPT CLEAN AND DRY ALL NEEDS MET ENDORSE TO INCOMING SHIFT.
[2022-10-20] MEDS: PANTOPRAZOLE 40 MG/PACK PACK PO SCH (07:30)
[2022-10-20] MEDS: GLUCERNA SHAKE 237 ML CAN PO SCH (07:50)
[2022-10-20 08:00] VITALS: BP 127/71
[2022-10-20] MEDS: FAMOTIDINE (20 MG) 20 MG TABLET PO SCH (08:21)
[2022-10-20] MEDS: PROSOURCE / PROSTAT (PYXIS) 30 ML UDC GT SCH (08:21)
[2022-10-20] MEDS: CARVEDILOL 6.25 MG TABLET PO SCH (08:34)
[2022-10-20 08:35] VITALS: BP 127/71
[2022-10-20] MEDS: LISINOPRIL (20MG) 20 MG TABLET PO SCH (08:35)
[2022-10-20] MEDS: DAKINS HALF STRENGTH (0.25%) 480 ML BOTTLE TOP SCH (10:45)
[2022-10-20] MEDS: DAKINS QUARTER STRENGTH (0.125%) 480 ML BOTTLE TOP SCH (10:45)
[2022-10-20] MEDS: TIMOLOL 0.5% SOLN OPHTH 5 ML BOTTLE EACHEYE SCH (10:45)
--- NOTE | 2022-10-20 10:46 | NUR ---
MS PRESCHOOL ASSISTANT TEACHER NOTE PT LEFT IN STABLE CONDITION. PICKED UP BY AMBULANCE TEAM.PROVIDED DISCHARGE INSTRUCTIONS TO AMBULANCE TEAM.VERBALIZED UNDERSTANDING AND AGREED. PT GOING HOME WITH HOSPICE.ALL BELONGINGS WITH PT
== END 2022-10-20 10:57 | disposition hospice, home (50) | DRG 853 ==
LOC: ER 12:20 → MEDSG1 20:49 → TELE1 21:27 → ICU 10-14 13:30 → TELE-TD 10-16 15:28 → TELE1 10-16 16:36 → MEDSG1 10-19 11:55
PROVIDERS: ADMIT Internal Medicine
PROC: 0QBM0ZZ Excision of Left Tarsal, Open Approach (ICD-10-PCS; principal; 2022-10-13)
PROC: 05HB33Z Insertion of Infusion Device into Right Basilic Vein, Percutaneous Approach (ICD-10-PCS; 2022-10-14)
PROC: 0KBN0ZZ Excision of Right Hip Muscle, Open Approach (ICD-10-PCS; 2022-10-15)
PROC: 0KBP0ZZ Excision of Left Hip Muscle, Open Approach (ICD-10-PCS; 2022-10-15)
PROC: 0KBN0ZZ Excision of Right Hip Muscle, Open Approach (ICD-10-PCS; 2022-10-18)
PROC: 0KBP0ZZ Excision of Left Hip Muscle, Open Approach (ICD-10-PCS; 2022-10-18)
DX: A41.50 Gram-negative sepsis, unspecified (principal); E43 Unspecified severe protein-calorie malnutrition; L89.324 Pressure ulcer of left buttock, stage 4; L89.314 Pressure ulcer of right buttock, stage 4; L89.154 Pressure ulcer of sacral region, stage 4; L89.624 Pressure ulcer of left heel, stage 4; R53.2 Functional quadriplegia; R65.21 Severe sepsis with septic shock; G93.41 Metabolic encephalopathy; N39.0 Urinary tract infection, site not specified; E87.1 Hypo-osmolality and hyponatremia; J98.11 Atelectasis; M48.54XA Collapsed vertebra, not elsewhere classified, thoracic region, initial encounter for fracture; R62.7 Adult failure to thrive; E86.0 Dehydration; D63.8 Anemia in other chronic diseases classified elsewhere; E11.40 Type 2 diabetes mellitus with diabetic neuropathy, unspecified; E11.621 Type 2 diabetes mellitus with foot ulcer; E78.5 Hyperlipidemia, unspecified; E88.09 Other disorders of plasma-protein metabolism, not elsewhere classified; I10 Essential (primary) hypertension; I25.10 Atherosclerotic heart disease of native coronary artery without angina pectoris; N21.0 Calculus in bladder; R13.10 Dysphagia, unspecified; Z74.01 Bed confinement status; Z86.73 Personal history of transient ischemic attack (TIA), and cerebral infarction without residual deficits; Z88.0 Allergy status to penicillin; Z88.6 Allergy status to analgesic agent; Z95.0 Presence of cardiac pacemaker; Z98.1 Arthrodesis status; G89.29 Other chronic pain; Z79.899 Other long term (current) drug therapy; L89.890 Pressure ulcer of other site, unstageable; S20.224A Contusion of middle back wall of thorax, initial encounter; Z20.822 Contact with and (suspected) exposure to COVID-19; X58.XXXA Exposure to other specified factors, initial encounter; Y93.9 Activity, unspecified; Y92.89 Other specified places as the place of occurrence of the external cause
CPT/HCPCS: 36410; 36415; 70490-TC; 71045-TC; 72193-TC; 73630-TC; 80048-TC; 80053-TC; 80076-TC; 80202-TC; 81001; 83540-TC; 83605-TC; 83735-TC; 84100-TC; 84484-TC; 85025-TC; 85396; 85730-TC; 87040-TC; 87081-TC; 87086-TC; 92526; 92611-TC; 93971-TC; 97112-TC; 97530-TC; A4223; A6253; A6403; C9803; G0378; J0692; J1650; J2185; J3370; J3490; J7030; J7050; J7060; Q9967